=== PATIENT | male | born 1940 | race African-American/Black ===

== ENCOUNTER 2017-07-27 18:06 | Emergency (ER) | payer MEDICARE ==
[~2017-07-27] VITALS: Ht 180.3 cm; Wt 77.0 kg
[~2017-07-27 18:06] MED LIST: BP PILL
[2017-07-27] MEDS ORDERED: PERCOCET 5/325M1 TAB PO (18:52)
[2017-07-27 19:43] VITALS: BP 114/67
== END 2017-07-27 19:44 | disposition home or self-care (01) ==
LOC: ED 18:06
DX: C34.90 Malignant neoplasm of unspecified part of unspecified bronchus or lung (principal); G89.3 Neoplasm related pain (acute) (chronic); C79.51 Secondary malignant neoplasm of bone

== ENCOUNTER 2017-08-06 13:41 | Emergency (ER) | payer MEDICARE ==
[~2017-08-06] VITALS: Ht 180.3 cm; Wt 50.0 kg
[~2017-08-06 13:41] MED LIST changes: +PERCOCET 5/325M1 TAB PO
[2017-08-06] MEDS ORDERED: LIPITOR20 M1 PO (14:16)
[2017-08-06] MEDS ORDERED: DILTIAZEM120 MG PO (14:17)
[2017-08-06] MEDS ORDERED: AMIODARONE200 MG PO (14:17)
[2017-08-06] MEDS ORDERED: CIPROFLOXACN500 MG PO (14:18)
[2017-08-06] MEDS ORDERED: MORPHINE SUL30 M3 PO (14:19)
[2017-08-06 16:35] VITALS: BP 118/64
== END 2017-08-06 18:30 | disposition hospice, inpatient (51) ==
LOC: ED 13:41
DX: G89.3 Neoplasm related pain (acute) (chronic) (principal); C34.90 Malignant neoplasm of unspecified part of unspecified bronchus or lung; C79.51 Secondary malignant neoplasm of bone; T40.2X6A Underdosing of other opioids, initial encounter; Z91.128 Patient's intentional underdosing of medication regimen for other reason; Y92.019 Unspecified place in single-family (private) house as the place of occurrence of the external cause